=== PATIENT | female | born 1960 | race American Indian/Alaskan Native ===

== ENCOUNTER 2018-05-29 10:22 | Emergency (ER) | payer SELFPAY ==
[2018-05-29 10:26] VITALS: BP 151/65
[2018-05-29] MEDS ORDERED: BENADRYL PO ONE (10:52)
[2018-05-29] MEDS ORDERED: DELTASONE PO ONE (10:52)
--- NOTE | 2018-05-29 11:02 | Emergency Department Report ---
HPI - General Chief Complaint: Urogenital-Female Time Seen by Provider: 05/29/18 10:43 - HPI HPI: This is a 57-year-old female with no medical history known to me presents to ED complaining of allergic reaction to vaginal area 4 days. Patient states she shaved about a week ago and after that itching and began. Patient states she brought some Vagisil wipes and used it on her scans shortly after that itching got worse and she had little bumps on her pubic region. She denies vaginal discharge, dysuria, vaginal bleeding, any other lesions in the vagina. He states itching is only localized to her pubic region. ED Past Medical Hx - Past Medical History Previous Medical History?: No - Surgical History Past Surgical History?: No - Social History Smoking Status: Current Every Day Smoker Substance Use Type: Alcohol, Marijuana - Medications Home Medications: Home Medications Medication Instructions Recorded Confirmed Last Taken Type Hydrocortisone 1% [Hydrocortisone 1 applicatio TP TID #1 tube 05/29/18 Unknown Rx 1% CREAM] diphenhydrAMINE [Benadryl CAP] 25 mg PO QHS PRN #30 capsule 05/29/18 Unknown Rx ED Review of Systems ROS: Stated complaint: RASH Other details as noted in HPI Comment: All other systems reviewed and negative Physical Exam - Physical Exam Vital Signs: Vital Signs 05/29/18 05/29/18 10:25 10:26 Temperature 98.3 F 98.3 F Pulse Rate 81 81 Respiratory 18 18 Rate Blood Pressure 151/65 Blood Pressure 151/65 [Right] O2 Sat by Pulse 95 95 Oximetry Physical Exam: GENERAL: Alert and oriented x3, no apparent distress, Normal Gait, atraumatic. HEAD: Head is normocephalic and a-traumatic. ABDOMEN: No organomegaly was noted,Positive bowel sounds, soft, and non- distended. . Nontender to palpation on all Quadrants, NO CVA tenderness. GENITOURINARY: External genitalia without erythema, exudate or discharge. Generalized, erythematous pinpoint rashlocalized to the mons pubis region. SKIN: Warm and dry, No lesions, No ulceration or induration present. ED Course Vital Signs 05/29/18 05/29/18 10:25 10:26 Temperature 98.3 F 98.3 F Pulse Rate 81 81 Respiratory 18 18 Rate Blood Pressure 151/65 Blood Pressure 151/65 [Right] O2 Sat by Pulse 95 95 Oximetry ED Medical Decision Making - Medical Decision Making 57-year-old female presents with allergic dermatitis irritation to the pubic region Patient has no rash anywhere else. Rashes localized to pubic region Discussed follow-up with primary care physician. Prednisone and Benadryl given in ED. Airway clear, vital signs are normal, patient speaking in clear sentences Critical care attestation.: If time is entered above; I have spent that time in minutes in the direct care of this critically ill patient, excluding procedure time. ED Disposition Clinical Impression: Allergic reaction, Vaginal irritation Disposition: DC- TO HOME OR SELFCARE Is pt being admited?: No Does the pt Need Aspirin: No Condition: Stable Instructions: Urticaria (ED), Contact Dermatitis (ED) Additional Instructions: Make sure to follow up with the primary care physician as discussed. Take all your medications as you've been prescribed. If you have any worsening symptoms or develop new symptoms please return to ED immediately. Prescriptions: diphenhydrAMINE [Benadryl CAP] 25 mg PO QHS PRN #30 capsule PRN Reason: Itching Hydrocortisone 1% [Hydrocortisone 1% CREAM] 1 applicatio TP TID #1 tube Referrals: [facility] [Outside] - 3-5 Days [facility] [address] [Outside] - 3-5 Days Forms: Work/School Release Form(ED), Accompanied Note Time of Disposition: 11:08
== END 2018-05-29 11:16 | disposition home or self-care (01) ==
LOC: ED 10:22
DX: T78.40XA Allergy, unspecified, initial encounter (principal); N89.8 Other specified noninflammatory disorders of vagina; F17.200 Nicotine dependence, unspecified, uncomplicated; F12.10 Cannabis abuse, uncomplicated; X58.XXXA Exposure to other specified factors, initial encounter
CPT/HCPCS: 99282; J7512